=== PATIENT | male | born 1955 | race African-American/Black ===

== ENCOUNTER 2018-06-13 19:36 | Emergency (ER) | payer MEDICAID ==
[~2018-06-13] VITALS: Ht 175.3 cm; Wt 65.3 kg
[2018-06-13 21:00] LABS: Dilantin (Phenytoin), Total 7.6 ug/mL (10.0-20.0)
== END 2018-06-13 23:32 | disposition home or self-care (01) ==
LOC: ER 19:36
PROVIDERS: Emergency Medicine
DX: S01.01XA Laceration without foreign body of scalp, initial encounter (principal); R79.1 Abnormal coagulation profile; Z23 Encounter for immunization; F17.210 Nicotine dependence, cigarettes, uncomplicated; W18.30XA Fall on same level, unspecified, initial encounter
CPT/HCPCS: 12001; 36415; 70450; 72125; 80185; 90471; 90714; 96360; 96361; 99284-25; J7030

== ENCOUNTER 2020-08-13 14:37 | Inpatient (IN) | payer OTHER ==
[~2020-08-13] VITALS: Ht 170.2 cm; Wt 70.5 kg
[2020-08-13] MEDS ORDERED: MIRT15 PO (14:54)
[2020-08-13] MEDS ORDERED: PHENYTOIN SODI100 MG PO (14:55)
[2020-08-13 15:31] LABS: Source, Urine Catheter
[2020-08-13 15:37] LABS: Appearance, Urine Clear (Clear); Bilirubin, Urine Neg (Neg); Blood, Urine 5+ (Neg); Color, Urine Amber (P-Yellow); Glucose Qualitative, Urine Neg (Neg); Ketones, Urine 2+ (Neg); Leukocyte Esterase, Urine 1+ (Neg); Nitrite, Urine Neg (Neg); Protein, Urine 4+ (Neg); Urobilinogen, Urine 2+ (Normal)
[2020-08-13 15:45] LABS: Amorphous Light (0-Heavy)
[2020-08-13 15:48] LABS: Bacteria Few /hpf; Squamous Epithelial Cells Not Seen /hpf (Few)
[2020-08-13 15:50] LABS: BASOPHILS ABSOLUTE AUTO 0.04 K/mm3 (0.00-0.23); BASOPHILS PERCENT AUTO 1 % (0-2); EOSINOPHILS PERCENT AUTO 0 % (0-6); Hematocrit 39.8 % (37.0-53.0); Hemoglobin 12.8 g/dL (13.5-17.5); IMMATURE GRAN PERCENT AUTO 1 % (0-1); LYMPHOCYTES ABSOLUTE AUTO 1.08 K/mm3 (0.84-5.20); LYMPHOCYTES PERCENT AUTO 14 % (21-46); MONOCYTES ABSOLUTE AUTO 0.23 K/mm3 (0.16-1.47); MONOCYTES PERCENT AUTO 3 % (4-13); Mean Corpuscular HGB 31.1 pg (26.0-34.0); Mean Corpuscular HGB Conc 32.2 g/dL (31.5-36.5); Mean Corpuscular Volume 97 fL (80-100); Mean Platelet Volume 11.6 fL (9.1-12.4); NEUTROPHILS ABSOLUTE AUTO 6.21 K/mm3 (1.96-9.15); NEUTROPHILS PERCENT AUTO 81 % (41-73); NRBC ABSOLUTE 0.03 K/mm3 (0.00-0.02); NRBC Auto 0.4 /100 WBC (0.0-0.2); Platelet Count 59 K/mm3 (150-400); RDW Coefficient Variation 14.6 % (11.7-14.2); RDW Standard Deviation 53.1 fL (35.1-46.3); Red Blood Cell Count 4.11 M/mm3 (4.30-5.90); White Blood Cell Count 7.66 K/mm3 (4.00-11.30)
[2020-08-13 15:51] LABS: U Amphetamine Screen Not Detected; U Barbituate Screen Not Detected; U Benzodiazapine Screen Not Detected; U Buprenorphine Screen Not Detected; U Cannabinoids Screen Not Detected; U Cocaine Screen Not Detected; U Methadone Screen Not Detected; U Methamphetamine Screen Not Detected; U Opiates Screen Not Detected; U Oxycodone Screen Not Detected; U Phencyclidine Screen Not Detected; U Propoxyphene Screen Not Detected
[2020-08-13 16:09] LABS: Alanine Aminotransfer (ALT/SGP 44 U/L (12-78); Albumin, Blood 3.1 g/dL (3.4-5.0); Albumin/Globulin Ratio 0.6 (0.8-1.8); Alk Phos 89 U/L (50-136); Anion Gap 4 mmol/L (6-16); Aspartate Aminotrans (AST/SGOT 164 U/L (12-37); Bilirubin, Total 0.7 mg/dL (0.1-1.0); Blood Urea Nitrogen 39 mg/dL (8-24); Bun/Creatinine Ratio 32.5 (12.0-20.0); CO2, Blood 26 mmol/L (21-32); Calcium, Blood 9.3 mg/dL (8.5-10.1); Chloride, Blood 104 mmol/L (98-108); Globulin, Blood 5.4 g/dL (2.2-4.0); Glomerular Filtration Rate >60 (60-); Glucose, Blood 82 mg/dL (70-99); Potassium, Blood 4.9 mmol/L (3.5-5.5); Sodium, Blood 134 mmol/L (136-145); Total Protein, Blood 8.5 g/dL (6.4-8.2)
[2020-08-13 17:16] LABS: Influenza A, PCR Negative (NEGATIVE); Influenza B, PCR Negative (NEGATIVE); Resp Syncytial Virus, PCR Negative (NEGATIVE); SARS-Cov-2 (COVID-19) PCR, MMC Positive (NEGATIVE)
--- NOTE | 2020-08-14 05:06 | NUR ---
LATE ENTRY: CALL PLACED TO HOSPITALIST, DR. CASTILLO, AT 0315 RE: SINUS TACH 115-120'S. PT RESTING QUIETLY BUT REPORTING GENERALIZED PAIN 06/19. LS CLEAR/DIM W/ FAINT WHEEZE, NO EDEMA. RECEIVED ORDER FOR NS @ 75MLS/HR X 1L. NEW ORDER FOR FENTANYL PRN.
--- NOTE | 2020-08-14 05:17 | NUR ---
SHIFT SUMMARY: TACHYCARDIC W/PULSE 110-121. TEMP 100.1. MAINTAINING 02 SATS WNL ON RA. NASAL CONGESTION W/SNORTING- PRODUCING YELLOW, RED STREAKED MUCOUS. RESPS 28 UPON ARRIVAL TO UNIT, PT DOES NOT TO APPEAR TO BE IN RESP DISTRESS, RESPS SHALLOW, EVEN, ON-LABORED, 02 SATS WNL. LS CLEAR/DIM W/ FAINT WHEEZE AUDIBLE. IV FLUIDS CURRENTLY INFUSING PER ORDERS. PRN ANALGESIC ADMINISTERED, PT NOW APPEARS TO BE RESTING COMFORTABLY. SPEAKS MINIMALLY USING "YES", "NO", OR SHORT PHRASES. FORGETFUL, DOES NOT KNOW THE MEDS HE TAKES OR HIS MEDICAL HISTORY. A/O TO SELF ONLY. PT DOES NOT KNOW THE YEAR OR THE LOCATION. COOPERATIVE. FLAT AFFECT, WITHDRAWN. SPEECH IS SLOW. CONTRACTURE WITH SLOW GROSS MOVEMENT IN R HAND. R FOOT PUSH/PULL WEAK COMPARED TO L. PT REPORTS NUMBESS IN R HAND. UNABLE TO ASSESS FACIAL SYMMETRY DUE TO LACK OF PT PARTICIPATION. WILL CONT TO MONITOR.
[2020-08-14 05:28] LABS: Hematocrit 36.4 % (37.0-53.0); Hemoglobin 11.8 g/dL (13.5-17.5); Mean Corpuscular HGB 31.6 pg (26.0-34.0); Mean Corpuscular HGB Conc 32.4 g/dL (31.5-36.5); Mean Corpuscular Volume 98 fL (80-100); NRBC ABSOLUTE 0.04 K/mm3 (0.00-0.02); NRBC Auto 0.7 /100 WBC (0.0-0.2); RDW Coefficient Variation 14.9 % (11.7-14.2); RDW Standard Deviation 53.1 fL (35.1-46.3); Red Blood Cell Count 3.73 M/mm3 (4.30-5.90)
--- NOTE | 2020-08-14 05:31 | NUR ---
PT WAS WEARING LEATHER, FINGERLESS GLOVE ON R HAND UPON ADMIT. THIS RN ALONG W/ CORE JAVA SOFTWARE ENGINEER REMOVED -W/ DIFFICULTY- GLOVE TO FIND VERY THICK LAYERS OF SKIN PEELING OFF IN LARGE, THICK PIECES. PALM HAS A MACERATED APPEARANCE, ALSO W/THICK LAYERS OF TISSUE BUILT UP. PT HAS GROSS MOVEMENT ONLY AND CONTRACTURE IN R HAND. GLOVE APPEARS TO HAVE BEEN ON HAND FOR A LONG PERIOD OF TIME.
[2020-08-14 05:36] LABS: Mean Platelet Volume 13.1 fL (9.1-12.4); Platelet Count 50 K/mm3 (150-400)
[2020-08-14 05:49] LABS: BAND PERCENT MAN 3 % (0-8); BASOPHILS PERCENT MAN 0 % (0-2); Bun/Creatinine Ratio 27.3 (12.0-20.0); Creatinine, Blood 1.5 mg/dL (0.60-1.20); EOSINOPHILS PERCENT MAN 0 % (0-6); LYMPHOCYTES ABSOLUTE MAN 1.34 K/mm3 (0.84-5.20); LYMPHOCYTES PERCENT MAN 22 % (21-46); METAMYELOCYTE ABSOLUTE MAN 0.06 K/mm3 (0.00-0.00); METAMYELOCYTE PERCENT MAN 1 % (0-0); MONOCYTES ABSOLUTE MAN 0.24 K/mm3 (0.16-1.47); MONOCYTES PERCENT MAN 4 % (4-13); MYELOCYTE ABSOLUTE MAN 0.06 K/mm3 (0.00-0.00); MYELOCYTE PERCENT MAN 1 % (0-0); NEUTROPHILS ABSOLUTE MAN 4.39 K/mm3 (1.96-9.15); Potassium, Blood 4.6 mmol/L (3.5-5.5); SEG NEUTROPHILS PERCENT MAN 69 % (41-73); TOTAL CELLS COUNTED 100
--- NOTE | 2020-08-14 10:42 | NUR ---
JULIANO LOREDO: PT HISTORY/MEDS THIS RN PHONED [facility] TO OBTAIN PT INFORMATION SUCH HISTORY AND MEDICATIONS AT 1040 TODAY, 08/14/20. THIS RN SPOKE WITH SHAHRZAD WHO STATED THEY COULD NOT GET INFORMATION TO US THIS WEEKEND BECAUSE THE PT'S LABORATORY PHLEBOTOMIST IS NOT IN THE OFFICE UNTIL 08/16/20.
--- NOTE | 2020-08-14 17:19 | NUR ---
PT STATUS/PHYSICIAN NOTIFICATION THIS RN NOTIFIED DR. PÉREZ OF PT CONTINUED FEVER AND TACHYCARDIA WITH ELEVATED RESPIRATIONS AND DESATURATION. THIS RN PLACED PT ON 1 L/MIN VIA NC. THIS RN GAVE PT TYLENOL PRIOR TO PHYSICIAN NOTIFICATION. THIS RN RECIEVED ORDERS TO START PT ON IV DECADRON AND REMDESIVIR PER EMAR. THIS RN WILL CONTINUE TO MONITOR PT STATUS.
[2020-08-14 17:38] LABS: PO2 Arterial 67.5 mmHg (80-100); pH Blood Arterial 7.43 (7.35-7.45)
--- NOTE | 2020-08-14 18:45 | NUR ---
SHIFT SUMMARY PT IS AO TO SELF. PT RESPIRATIONS SHALLOW AND TACHYPNIC THROUGHOUT SHIFT. PT IS FEBRILE THIS PIERO, CURRENTLY AT 100.2 VIA ORAL THERMOMETER. PT DENIES PAIN, N/V. PT IS HAVING BLOODY NASAL OUTPUT WHEN NOSE IS BLOWN. PT HAS NONPRODUCTIVE, BARKY COUGH THIS SHIFT. PT HR IS RUNNING TACHYCARDIA IN THE 120S. SEE NOTE. POWERGLIDE PLACED IN GLORIA THIS SHIFT AND NS WITH REMDESIVIR CURRENTLY RUNNING. PT ANSWERS TO NAME AND MORE VERBAL THIS EVENING. PT WORKED WITH PT AND STATED HE IS STILL ON BEDREST. ST EVALUATED PT AND ORDERED A [facility] SOFT DIET DUE TO PT MISSING LOWER DENTURES. THIS RN CALLED [facility] REYES FOR PT INFORMATION BUT THEY STATED THEY CANNOT GET BACK TO US ON HIS HISTORY UNTIL SUNDAY-SEE NOTE. PT HAD GOOD APPETITE THIS SHIFT. PT IS CURRENTLY IN BED, CALL LIGHT IN REACH, BED IN LOW POSITION.
--- NOTE | 2020-08-14 22:55 | NUR ---
CALL TO HOSPITALIST. PT CONTINUES W/ LOW GRADE FEVER AND TACHYCARDIC AT 98-108. DR. LORRAINE DYE CONTINUING NS @ 75MLS/HR.
--- NOTE | 2020-08-15 04:45 | NUR ---
SHIFT SUMMARY: A/OX1. ANSWERING "YES", "NO", COUPLE WORD STATEMENTS. GENERALLY WITHDRAWN AND KEEPING EYES CLOSED. DENIES PAIN. 02 SATS 96-98% ON 1L VIA HUMIDIFIED NC. PT WAS NOTED TO HAVE DRIED BLOOD BESIDE NOSE. SOUNDS NASALLY CONGESTED AND FREQUENTLY SNORTS WHILE AWAKE. MODERATE AMT OF YELLOW/RED MUCOUS FOUND ON PT'S GOWN. INFREQUENT CONGESTED SOUNDING COUGH. PT AFEB THIS MORNING. LS DIM. RESPS SHALLOW, NON-LABORED. IV FLUIDS INFUSING PER ORDERS. NO ACUTE CHANGES OVERNIGHT.
[2020-08-15 05:52] LABS: Hematocrit 34.2 % (37.0-53.0); Hemoglobin 11.1 g/dL (13.5-17.5); Mean Corpuscular HGB 31.7 pg (26.0-34.0); Mean Corpuscular HGB Conc 32.5 g/dL (31.5-36.5); Mean Corpuscular Volume 98 fL (80-100); Mean Platelet Volume 12.6 fL (9.1-12.4); NRBC ABSOLUTE 0.03 K/mm3 (0.00-0.02); NRBC Auto 0.3 /100 WBC (0.0-0.2); Platelet Count 54 K/mm3 (150-400); RDW Coefficient Variation 14.6 % (11.7-14.2); RDW Standard Deviation 52.8 fL (35.1-46.3); White Blood Cell Count 9.05 K/mm3 (4.00-11.30)
[2020-08-15 06:16] LABS: Albumin, Blood 2.4 g/dL (3.4-5.0); Anion Gap 9 mmol/L (6-16); Blood Urea Nitrogen 41 mg/dL (8-24); Bun/Creatinine Ratio 28.7 (12.0-20.0); CO2, Blood 21 mmol/L (21-32); Calcium, Blood 8.4 mg/dL (8.5-10.1); Chloride, Blood 109 mmol/L (98-108); Creatinine, Blood 1.43 mg/dL (0.60-1.20); Glomerular Filtration Rate 52 (60-); Glucose, Blood 124 mg/dL (70-99); Phosphorus, Blood 4.6 mg/dL (2.5-4.9); Potassium, Blood 4.7 mmol/L (3.5-5.5); Sodium, Blood 139 mmol/L (136-145)
--- NOTE | 2020-08-15 15:17 | NUR ---
PATIENT IS INDEPENDENT IN THE ROOM. TITRATED TO 1L O2 VIA NC, WITH SATURATIONS ABOVE 90%. CONTINUOUS PULSE OX IS IN PLACE. TELEMETRY HAS BEEN DC'D. NO COMPLAINTS AT THIS TIME. WILL CONTINUE TO MONITOR.
--- NOTE | 2020-08-15 16:46 | NUR ---
PATIENT IS ALERT AND ORIENTED TO SELF AND FOLLOWING DIRECTIONS. HE HAS SLEPT IN BED MOST OF THE DAY, WAKING UP FOR MEALS AND BEDBATH. NO COMPLAINTS OF SOB OR PAIN. PATIENT HAS GROSS MOVEMENT OF HIS RIGHT EXTREMITIES. PATIENT CAN HELP ROLL HIMSELF IN BED. RYAN ROBERTSON TODAY. ATTENDS IN PLACE. NO BLOODY SPUTUM NOTED TODAY. WILL CONTINUE TO MONITOR.
--- NOTE | 2020-08-15 17:57 | NUR ---
PATIENT IS FEEDING HIMSELF DINNER
[2020-08-16 05:41] LABS: Hematocrit 33.2 % (37.0-53.0); Hemoglobin 10.6 g/dL (13.5-17.5); Mean Corpuscular HGB 31.5 pg (26.0-34.0); Mean Corpuscular HGB Conc 31.9 g/dL (31.5-36.5); Mean Corpuscular Volume 99 fL (80-100); Mean Platelet Volume 12.5 fL (9.1-12.4); NRBC ABSOLUTE 0.06 K/mm3 (0.00-0.02); NRBC Auto 0.4 /100 WBC (0.0-0.2); Platelet Count 63 K/mm3 (150-400); RDW Coefficient Variation 14.6 % (11.7-14.2); RDW Standard Deviation 53.6 fL (35.1-46.3); Red Blood Cell Count 3.37 M/mm3 (4.30-5.90); White Blood Cell Count 15.61 K/mm3 (4.00-11.30)
[2020-08-16 05:57] LABS: Albumin, Blood 2.2 g/dL (3.4-5.0); Anion Gap 8 mmol/L (6-16); Blood Urea Nitrogen 46 mg/dL (8-24); Bun/Creatinine Ratio 32.2 (12.0-20.0); CHOL/HDL RATIO 2.5; CO2, Blood 21 mmol/L (21-32); Calcium, Blood 7.4 mg/dL (8.5-10.1); Chloride, Blood 112 mmol/L (98-108); Cholesterol 89 mg/dL (50-200); Creatinine, Blood 1.43 mg/dL (0.60-1.20); Glomerular Filtration Rate 52 (60-); Glucose, Blood 128 mg/dL (70-99); HDL Cholesterol 35 mg/dL (>39); LDL/HDL RATIO 1.1; Low Density Lipoprotein Chol 39 mg/dL (0-110); Potassium, Blood 4.8 mmol/L (3.5-5.5); Sodium, Blood 141 mmol/L (136-145); Triglycerides 73 mg/dL (30-160); Very Low Density Lipoprot Chol 14 mg/dL (6-32)
--- NOTE | 2020-08-16 06:24 | NUR ---
SHIFT SUMMARY: VSS. TEMP 99.0 AT THE HIGHEST TONIGHT. 02 88% THIS ON 1L VIA NC, INCREASED TO 2L. NOW SATTING AT 93%. RESPS SHALLOW, NON-LABORED, PT DENIES SOB. LUNGS DIM. OCC CONGESTED SOUNDING COUGH. APPEARS TO BE NON-PRODUCTIVE AT THIS TIME. DENIES PAIN. AAOX1. MORE RESPONSIVE AND ALERT W/ EYES OPEN AND MAKING EYE CONTACT MORE TONIGHT. STILL USING FEW WORDS IN REPLY TO STAFF. SPEECH CLEAR. SWALLOWING THIN LIQUIDS WITHOUT COUGHING. R PROGRAM THERAPIST/PUSHES/PULLS CONTINUE W/ WEAKNESS AND GROSS MOVEMENT ONLY. PT DENIES N/T. HEAVY INCONTINENT VOID TONIGHT- PT SEEMINGLY UNAWARE HE WAS WET. PVR 0 MLS. NO ACUTE CONCERNS AT THIS TIME.
--- NOTE | 2020-08-16 18:38 | NUR ---
PT SEEN BY PT THIS SHIFT, ABLE TO SIT ON EOB AND STAND AT BEDSIDE WITH WALKER AND ASSISTANCE. SNF RECOMMENDED BUT OF THIS AFTERNOON PT IS SAYING HE DOES NOT WANT TO GO TO REHAB. HE DECLINED TO WORK WITH OT THIS AFTERNOON. HE HAS BEEN SLEEPING A LOT TODAY. NO ACUTE CHANGES WILL CONTINUE TO MONITOR AND REPORT TO ONCOMING RN
--- NOTE | 2020-08-17 04:54 | NUR ---
ENGINEERING GEOLOGIST SUMMARY PT AAOX2 FOR THE MOST PART. CAN ANSWER YES/NO QUESTIONS AND SOME SHORT SENTENCES BUT PT STILL CONFUSED/FORGETFUL AT TIMES. PT HAD LARGE INCONTINENT BM AT START OF SHIFT. PT ALSO PULLED GLORIA POWERGLIDE AT START OF SHIFT. PG CATHETER REMOVED IN ONE PIECE AND WNL, REPLACED WITH 20G PERIPHERAL IV IN LFA. PT REMAIN ON 2L O2 VIA NC, NO CHANGES ON TELE. BED ALARM ON FOR SAFETY. VSS, WILL CONTINUE TO MONITOR.
--- NOTE | 2020-08-18 05:06 | NUR ---
WEB GRAPHIC DESIGNER SUMMARY NO ACUTE CHANGES THIS SHIFT. PT AAOX2, STILL WITHDRAWN AND SPEAKING IN SHORT CONCISE SENTENCES OR SIMPLE YES/NO ANSWERS. DENIES PAIN. PT O2 SATS AT 98% WITH AM VITALS SO PT TAKEN OFF OF SUPPLEMENTAL O2 AT THIS TIME. CONTINUES TO HAVE SOME BLOODY STREAKING WHEN BLOWING HIS NOSE. VSS, WILL CONTINUE TO MONITOR.
--- NOTE | 2020-08-18 18:37 | NUR ---
SUMMARY- PT ALERT TO SELF, FOLLOWS COMMANDS PHYSICALLY ABLE. PT LUNGS CLEAR, DIM. OCC MOIST COUGH WITH PRODUCTION. 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 PHYSICAL THERAPY WORKED WITH PT TODAY IN THE BED. THE PLAN IS FOR [facility] OR [facility] FOR REHAB BEFORE RETURNING HOME TO [facility]. PT NOT EATING A LARGE AMOUNT. NEEDS SET UP AND ASSIST SOMETIMES. VOIDS USING URINAL MOST OF THE TIME, SOMETIMES MISSES AND SOILS BED. PT SEEMS SEVERELY WITHDRWN AND LIKELY DEPRESSED.
--- NOTE | 2020-08-19 04:07 | NUR ---
SHIFT SUMMARY ASSUMED CARE OF PT AT 1900. PT IS A/OX1, FLAT AND WITHDRAWL AFFECT. PT WILL ANSWER WITH YES OF NO. HEART SOUNDS REGULAR, TELE SHOWS SINUS @ 86. LUNG SOUNDS HAVE CRACKLES AT THE BASES. PT WAS ON RA UNTIL ABOUT 0400 AFTER BEING CHANGED, PT COUGHED AND DESATURTATED INTO THE 802. 2.5 L ADMINISTERED AND PT RESIRATIONS DECREASE, SATURATIONS AT 92%. PT WAS INCONTIENT T/O THE NIGHT. PT HAS LUMPS ON HIS SHINS. PT R SIDE AND JAYME AREA ARE VERY SENSITIVE TO TOUCH. R HAND IS CONTRACTED AND R LEG IS WEAK. CALL LIGHT IN REACH, BED IN LOWEST POSTION, WILL CONTINUE TO MONITOR.
--- NOTE | 2020-08-19 12:12 | NUR ---
Patient is lying in bed and alert. Patient is quiet and somewhat difficult to engage in conversation. Patient tells me that he is frustrated and has no one as far as a support system. While we were visiting he wet the bed so I had to cut my time with patient short. I checked back in with patient after I visit an another patient and Mr. Jensen said that he does not really need anything today but he would not mind another visit tomorrow. I will will continue to remain available to patient and hopefully be able to discuss his coping skills and resources.
--- NOTE | 2020-08-19 18:11 | NUR ---
SUMM- PT ALERT TO SELF, PLACE AND CIRCUMSTANCE. HAS EXPRESSIVE APHASIA AND R CONTRACTURED ARM AT BASELINE. PT HAS PERIODS OF TACHYPNIA SEEMING TO COORILATE WITH STAFF CONTACT, MAYBE NERVOUS. GEN RESP RATE SHALLOW AND FAST 18-24. SATS 95% ON 3L OXYGEN. NOTED CRACKLES ANT LOWER HALF ANT CHEST FIELD. NOTIFIED DR LUA THIS AM AND LASIX ORDERED. PT DIURESED 1600 OVER 12 HOURS. PT ALSO HAVING FREQ MOIST COUGH THAT SOUNDS RATTLEY AND PT NOT ABLE TO GET ALOT OF PRODUCTION DESPITE STRONG COUGH. DR LUA AGREED TO START FLUTTER VALVE AND GUIAFFENISIN. PLAN FOR PT TO GO TO [facility] 08/20.
--- NOTE | 2020-08-20 04:18 | NUR ---
SHIFT SUMMARY ASSUMED CARE OF PT AT 1900. PT IS WITHDRAWN AND LETHARGIC. PT WILL ANSWER YES AND NO QUESTIONS AND SOMETIMES ANSWER WITH A WORD. PT ASKED TO GO TO THE BATHROOM THIS PM. PT WAS ABLE TO MADE IT WITH 2P SBA. PT WOULD TAKE A BIG STEP WITH THE R LEG AND THEN A SMALL STEP WITH THE LEFT. PT DID NOT LISTEN TO COMMANDS WELL AND TOOK A LOT OF ENCOURAGING TO GET BACK INTO BED. PT HR WENT INTO THE 150'S AND PT COUGHED FOR ABOUT 30MIN AFTER TRANSFER, MEDICATED PER EMAR. PT O2 WAS TURNED UP TO 4L. PT HAS REMAINED ON 3-5 LITERS DURING THE NIGHT. PT DESATURATES WHEN HE COUGHS. HEART SOUNDS TACHY, TELE SHOWS SINUS TACH @ 107 BUT DECREASED AFTER REST INTO THE 80'S. PT HAD LARGE BM THIS EVENING. PT WAS INCONTINENT OF URINE DURING THE NIGHT. PT HAS SCALY SKIN ON LEGS. PT WORE SCD ALL NIGHT. CALL LIGHT IN REACH, BED IN LOWEST POSITION, WILL CONTINUE TO MONITOR.
[2020-08-20 05:14] LABS: Hematocrit 33.4 % (37.0-53.0); Hemoglobin 10.9 g/dL (13.5-17.5); Mean Corpuscular HGB 31.1 pg (26.0-34.0); Mean Corpuscular HGB Conc 32.6 g/dL (31.5-36.5); Mean Corpuscular Volume 95 fL (80-100); Mean Platelet Volume 12.2 fL (9.1-12.4); NRBC ABSOLUTE 0.21 K/mm3 (0.00-0.02); Platelet Count 91 K/mm3 (150-400); RDW Coefficient Variation 14.5 % (11.7-14.2); RDW Standard Deviation 50.3 fL (35.1-46.3)
[2020-08-20 05:24] LABS: Bun/Creatinine Ratio 27.3 (12.0-20.0); Calcium, Blood 8.3 mg/dL (8.5-10.1); Creatinine, Blood 1.28 mg/dL (0.60-1.20); Potassium, Blood 3.9 mmol/L (3.5-5.5)
--- NOTE | 2020-08-20 18:10 | NUR ---
SHIFT SUMMARY PT AXO TO SELF AND FOLLOWING SOME DIRECTIONS. PT COOPERATIVE WITH CARE. SEE PHYSICAL THERAPY AND OT NOTES. AT 1531 PT TEMP WAS 101.3, MEDICATED PER EMAR, 99.9 AT THIS TIME. PT NOT TOLERATING [facility] SOFT DIET, PUREE DIET ORDERED. PT INCONTINENT AND CHANGED PRN. PT DENIES PAIN, SOB AND NC. PT COUGHING AT TIMES. BED IN LOW POSITION, CALL LIGHT WITHIN REACH. BED ALARM ON.
--- NOTE | 2020-08-21 04:48 | NUR ---
CRYSTAL EVALUATOR SUMMARY PT A&O TO SELF, PLEASANT AND COOPERATIVE TO CARE. NO C/O PAIN THIS SHIFT. DENIES CP OR N&V. PT ON 4LPM O2 VIA NC, SOB WITH EXERTION, CONT TO COUGH OCCASSIONALLY, PRODUCTIVE. ON CONT BIOX 90-94%. PT 2 MAX ASSIST, INCONTINENT. DENIES DYSURIA, ATTENDS IN PLACE. PT CALM AND RESTED IN BED T/O SHIFT, BED ALARM ON, BED AT LOWEST POSITION, CALL LIGHT WITHIN REACH.
[2020-08-21 05:58] LABS: BASOPHILS ABSOLUTE AUTO 0.14 K/mm3 (0.00-0.23); BASOPHILS PERCENT AUTO 1 % (0-2); EOSINOPHILS PERCENT AUTO 0 % (0-6); Hematocrit 33.6 % (37.0-53.0); Hemoglobin 10.9 g/dL (13.5-17.5); IMMATURE GRAN ABSOLUTE AUTO 3.21 K/mm3 (0.00-0.10); IMMATURE GRAN PERCENT AUTO 14 % (0-1); LYMPHOCYTES ABSOLUTE AUTO 2.69 K/mm3 (0.84-5.20); LYMPHOCYTES PERCENT AUTO 12 % (21-46); MONOCYTES ABSOLUTE AUTO 0.57 K/mm3 (0.16-1.47); MONOCYTES PERCENT AUTO 3 % (4-13); Mean Corpuscular HGB Conc 32.4 g/dL (31.5-36.5); Mean Corpuscular Volume 99 fL (80-100); Mean Platelet Volume 12.4 fL (9.1-12.4); NEUTROPHILS ABSOLUTE AUTO 15.67 K/mm3 (1.96-9.15); NEUTROPHILS PERCENT AUTO 70 % (41-73); NRBC ABSOLUTE 0.12 K/mm3 (0.00-0.02); NRBC Auto 0.5 /100 WBC (0.0-0.2); Platelet Count 87 K/mm3 (150-400); RDW Coefficient Variation 14.6 % (11.7-14.2); RDW Standard Deviation 52.2 fL (35.1-46.3); Red Blood Cell Count 3.41 M/mm3 (4.30-5.90); White Blood Cell Count 22.38 K/mm3 (4.00-11.30)
[2020-08-21 06:17] LABS: BAND PERCENT MAN 7 % (0-8); BASOPHILS PERCENT MAN 0 % (0-2); EOSINOPHILS PERCENT MAN 0 % (0-6); LYMPHOCYTES ABSOLUTE MAN 3.13 K/mm3 (0.84-5.20); LYMPHOCYTES PERCENT MAN 14 % (21-46); METAMYELOCYTE ABSOLUTE MAN 1.11 K/mm3 (0.00-0.00); METAMYELOCYTE PERCENT MAN 5 % (0-0); MONOCYTES ABSOLUTE MAN 0.67 K/mm3 (0.16-1.47); MONOCYTES PERCENT MAN 3 % (4-13); MYELOCYTE ABSOLUTE MAN 0.44 K/mm3 (0.00-0.00); MYELOCYTE PERCENT MAN 2 % (0-0); SEG NEUTROPHILS PERCENT MAN 69 % (41-73); TOTAL CELLS COUNTED 100
[2020-08-21 06:19] LABS: Anion Gap 7 mmol/L (6-16); Blood Urea Nitrogen 32 mg/dL (8-24); Bun/Creatinine Ratio 25.4 (12.0-20.0); CO2, Blood 23 mmol/L (21-32); Calcium, Blood 8.7 mg/dL (8.5-10.1); Chloride, Blood 110 mmol/L (98-108); Creatinine, Blood 1.26 mg/dL (0.60-1.20); Glomerular Filtration Rate >60 (60-); Glucose, Blood 90 mg/dL (70-99); Potassium, Blood 4.5 mmol/L (3.5-5.5); Sodium, Blood 140 mmol/L (136-145)
--- NOTE | 2020-08-21 18:19 | NUR ---
PT IS AOX1 WITH VERY MINIMAL VERBAL RESPONSES. PT SLEPT MOST OF THE DAY. PT DID NOT EAT BREAKFAST, BUT THEN ATE MOST OF HIS LUNCH AND THEN DIDN'T EAT MUCH DINNER. PT IS INCONTENT AND WILL WET THEH WHOLE BED. WHEN CHANGED AND TURNED PT HIS O2 STATED TO GET DOWN INTO THE 80s. RT WAS NOTIFIED THAT PT WAS NEEDED TO HAVE 7L TO KEEP UP HIS O2 LEVEL TO 89-90. RT CHANED PT TO HIGH FLOW CANULA AND THIS SEEMS TO BE WORKING WELL AT 4L. PT IS BEING REPOSITIONED EVERY COUPLE HOURS. PT WOULD ONLY TOLERATE A PARCEL BED BATH AND REFUSED HAIR GETTING CLEANED. BED ALARM IN PLACE WILL CONTINUE TO MONITOR.
--- NOTE | 2020-08-22 05:40 | NUR ---
SHIFT SUMMARY NO ACUTE CHANGES THIS SHIFT. PT HAD BED BATH AND COMPLETE LINEN CHANGE THIS SHIFT. PT WILL TAKE O2 OUT OF NOSE OFTEN, O2 SAT DIPS DOWN TO 86-89% WHEN THIS HAPPENS. ONCE O2 IS BACK IN PLACE O2 SAT WILL RETURN TO 93-96%. CONT BIOX IN PLACE. PT IS INCONTINENT, ORIENTED TO SELF ONLY. PT CAN BE RESISTIVE TO CARE, BUT ONCE THIS RN EXPLAINED WHY WE WERE DOING WHAT WE WERE DOING THE PT LET US. PT IS LAYING IN BED WITH EYES CLOSED, EVEN AND UNLABORED RESPIRATIONS. BED IN LOWERED POSITION WITH ALARM IN PLACE. CALL LIGHT AND PERSONAL ITEMS WITH IN REACH. NO APPARENT NEEDS OR DISTRESS AT THIS TIME, WILL CONTINUE TO MONITOR UNTIL REPORT GIVEN TO DAY RN.
[2020-08-22 06:00] LABS: BASOPHILS ABSOLUTE AUTO 0.09 K/mm3 (0.00-0.23); BASOPHILS PERCENT AUTO 0 % (0-2); EOSINOPHILS ABSOLUTE AUTO 0.22 K/mm3 (0.00-0.68); EOSINOPHILS PERCENT AUTO 1 % (0-6); Hematocrit 33.1 % (37.0-53.0); Hemoglobin 10.5 g/dL (13.5-17.5); IMMATURE GRAN ABSOLUTE AUTO 2.64 K/mm3 (0.00-0.10); IMMATURE GRAN PERCENT AUTO 13 % (0-1); LYMPHOCYTES ABSOLUTE AUTO 2.52 K/mm3 (0.84-5.20); LYMPHOCYTES PERCENT AUTO 12 % (21-46); MONOCYTES ABSOLUTE AUTO 0.69 K/mm3 (0.16-1.47); MONOCYTES PERCENT AUTO 3 % (4-13); Mean Corpuscular HGB 31.8 pg (26.0-34.0); Mean Corpuscular HGB Conc 31.7 g/dL (31.5-36.5); Mean Corpuscular Volume 100 fL (80-100); NEUTROPHILS ABSOLUTE AUTO 14.89 K/mm3 (1.96-9.15); NEUTROPHILS PERCENT AUTO 71 % (41-73); NRBC ABSOLUTE 0.04 K/mm3 (0.00-0.02); NRBC Auto 0.2 /100 WBC (0.0-0.2); Platelet Count 85 K/mm3 (150-400); RDW Coefficient Variation 14.6 % (11.7-14.2); RDW Standard Deviation 52.4 fL (35.1-46.3); White Blood Cell Count 21.05 K/mm3 (4.00-11.30)
[2020-08-22 06:04] LABS: Mean Platelet Volume 12.8 fL (9.1-12.4)
[2020-08-22 06:18] LABS: BAND PERCENT MAN 8 % (0-8); BASOPHILS PERCENT MAN 0 % (0-2); EOSINOPHILS ABSOLUTE MAN 0.21 K/mm3 (0.00-0.68); EOSINOPHILS PERCENT MAN 1 % (0-6); LYMPHOCYTES PERCENT MAN 10 % (21-46); METAMYELOCYTE ABSOLUTE MAN 0.84 K/mm3 (0.00-0.00); METAMYELOCYTE PERCENT MAN 4 % (0-0); MONOCYTES ABSOLUTE MAN 0.63 K/mm3 (0.16-1.47); MONOCYTES PERCENT MAN 3 % (4-13); MYELOCYTE ABSOLUTE MAN 0.42 K/mm3 (0.00-0.00); MYELOCYTE PERCENT MAN 2 % (0-0); NEUTROPHILS ABSOLUTE MAN 16.62 K/mm3 (1.96-9.15); PROMYELOCYTE ABSOLUTE MAN 0.21 K/mm3 (0.00-0.00); PROMYELOCYTE PERCENT MAN 1 % (0-0); SEG NEUTROPHILS PERCENT MAN 71 % (41-73); TOTAL CELLS COUNTED 100
--- NOTE | 2020-08-22 18:51 | NUR ---
PT AOX1 AND COOPERATIVE FOR MOST CARE. PT IS HYPER SENSATIVE TO R SIDE AND WILL. PT NEEDS REPOSTIONED EVERY TWO HOURS AND FEED. PT IS VERY MINIMAL ON TALKING AND LIKES YES OR NO ANSWERS.PT DID HAVE TROUBLE LATE SHIFT WITH HIS NOSE BLEEDING. THIS HAS KEEP GOING. NOTIFIED DR LUA WHO ORDERED ICE TO BE HELD OVER NOSE IF NOT EFFECTIVE NOTIFY NIGHT DOCOTOR AND NOSE ROCKETS MAY BE NEEDED. WILL NOTIFY TYPESETTER APPRENTICE NURSE OF THIS. PT DID NOT WANT ICE. PT STILL HAVING SOME BLEEDING.
--- NOTE | 2020-08-22 23:25 | NUR ---
08/22/20 2315 Patient is having continued nose bleed. Pt is confused and non directable. Pt is taking off oxygen and blowing nose. Pt is still passing clots. ( approximately 1 TBSP worth of clots x3.) Dr. Alejandre notified, she asked me to ask Dr. Calvert what to do. Afrin ordered and labs PT/INR ordered. Primary nurse Natali LOGAN notified of orders.
[2020-08-23 00:02] LABS: International Normalized Ratio 1.07; Prothrombin Time Results 11.4 Sec (9.7-11.5)
--- NOTE | 2020-08-23 04:28 | NUR ---
08/23/20 0200 PT SLEEPING AND NOSEBLEEDING HAS SUBSIDED WITH ONLY ONE DROP OF BLOOD NOTICED UNDER LEFT NARE. RN CLEANSED IT OFF. O2 SATS REMAIN IN THE MID- TO HIGH 90'S ON 5LPM VIA N/C. REPOSITIONED Q 2 HOURS BY TWO STAFF. PT DOES TRY TO HELP WITH TURNING WHEN ASKED. ONLY ANSWERS QUESTIONS WITH 1-2 WORDS RESPONSES.
[2020-08-23 05:06] LABS: BASOPHILS ABSOLUTE AUTO 0.04 K/mm3 (0.00-0.23); BASOPHILS PERCENT AUTO 0 % (0-2); EOSINOPHILS ABSOLUTE AUTO 0.22 K/mm3 (0.00-0.68); EOSINOPHILS PERCENT AUTO 1 % (0-6); Hematocrit 30.4 % (37.0-53.0); Hemoglobin 9.9 g/dL (13.5-17.5); IMMATURE GRAN ABSOLUTE AUTO 1.32 K/mm3 (0.00-0.10); IMMATURE GRAN PERCENT AUTO 8 % (0-1); LYMPHOCYTES ABSOLUTE AUTO 2.02 K/mm3 (0.84-5.20); LYMPHOCYTES PERCENT AUTO 13 % (21-46); MONOCYTES ABSOLUTE AUTO 0.55 K/mm3 (0.16-1.47); MONOCYTES PERCENT AUTO 4 % (4-13); Mean Corpuscular HGB 32.8 pg (26.0-34.0); Mean Corpuscular HGB Conc 32.6 g/dL (31.5-36.5); Mean Corpuscular Volume 101 fL (80-100); Mean Platelet Volume 12.7 fL (9.1-12.4); NEUTROPHILS ABSOLUTE AUTO 11.49 K/mm3 (1.96-9.15); NEUTROPHILS PERCENT AUTO 74 % (41-73); NRBC ABSOLUTE 0.02 K/mm3 (0.00-0.02); NRBC Auto 0.1 /100 WBC (0.0-0.2); Platelet Count 86 K/mm3 (150-400); RDW Coefficient Variation 14.4 % (11.7-14.2); RDW Standard Deviation 51.9 fL (35.1-46.3); Red Blood Cell Count 3.02 M/mm3 (4.30-5.90); White Blood Cell Count 15.64 K/mm3 (4.00-11.30)
[2020-08-23 05:19] LABS: Anion Gap 5 mmol/L (6-16); Blood Urea Nitrogen 41 mg/dL (8-24); Bun/Creatinine Ratio 32.3 (12.0-20.0); CO2, Blood 24 mmol/L (21-32); Calcium, Blood 8.6 mg/dL (8.5-10.1); Chloride, Blood 107 mmol/L (98-108); Creatinine, Blood 1.27 mg/dL (0.60-1.20); Glomerular Filtration Rate >60 (60-); Glucose, Blood 99 mg/dL (70-99); Potassium, Blood 4.8 mmol/L (3.5-5.5); Sodium, Blood 136 mmol/L (136-145)
[2020-08-23 05:36] LABS: BAND PERCENT MAN 6 % (0-8); BASOPHILS PERCENT MAN 0 % (0-2); EOSINOPHILS ABSOLUTE MAN 0.31 K/mm3 (0.00-0.68); EOSINOPHILS PERCENT MAN 2 % (0-6); LYMPHOCYTES ABSOLUTE MAN 1.25 K/mm3 (0.84-5.20); LYMPHOCYTES PERCENT MAN 8 % (21-46); METAMYELOCYTE ABSOLUTE MAN 0.78 K/mm3 (0.00-0.00); METAMYELOCYTE PERCENT MAN 5 % (0-0); MONOCYTES ABSOLUTE MAN 0.15 K/mm3 (0.16-1.47); MONOCYTES PERCENT MAN 1 % (4-13); MYELOCYTE ABSOLUTE MAN 0.15 K/mm3 (0.00-0.00); MYELOCYTE PERCENT MAN 1 % (0-0); NEUTROPHILS ABSOLUTE MAN 12.98 K/mm3 (1.96-9.15); SEG NEUTROPHILS PERCENT MAN 77 % (41-73); TOTAL CELLS COUNTED 100
--- NOTE | 2020-08-23 17:22 | NUR ---
SHIFT SUMMARY- PT IS ALERT, HE RESPONDS WITH ONE OR TWO WORD ANSWERS. PROVIDED A BED BATH TODAY. HIS APPETITE IS POOR. HE WAS TITRATED DOWN TO 4L AND MAINTAINED O2 SATS. HE SLEPT INTERMITENTLY THROUGHOUT THIS SHIFT. HIS BED IS IN THE LOW POSITION AND HIS CALL LIGHT IS WITHIN REACH.
--- NOTE | 2020-08-23 22:50 | NUR ---
This specification writer received an order from Dr. Calvert on 08/22/20 at 8190 for oxymetazoline 2 sprays q12 hours for nose bleed updated at this time.
--- NOTE | 2020-08-23 23:12 | NUR ---
Lab was notified on 08/23/20 [address] Terrence Calvert on 08/22/20 at 2330 for PT/INR for updating.
--- NOTE | 2020-08-24 00:09 | NUR ---
08/23/20 2350 REPOSITIONED TO LEFT SIDE AND SUPPORTED BY PILLOWS. DENIES ANY DISCOMFORT WITH "NO!" ORAL FLUIDS GIVEN BUT ONLY TOOK COUPLE OF SIPS OF WATER. WATCHING TV.
--- NOTE | 2020-08-24 03:34 | NUR ---
08/24/20 0330 VITALS STABLE. PT ON O2 AT 3LPM VIA N/C. ONLY WILL TAKE SMALL AMOUNTS OF ORAL FLUID EVEN WITH ENCOURAGMENT. NO NOSE BLEEDING THIS SHIFT. DENIES PAIN. SKIN TEAR NOTED TO RFA AND CLEANSED AND BANDAID APPLIED. PT DOES NOT INITIATE CONVERSATION BUT WILL OCC. ANSWER QUESTIONS WITH "YES"/"NO" RESPONSES. WATCHING TV ON AND OFF THIS SHIFT.
[2020-08-24] MEDS ORDERED: ASPI81CH PO (13:00)
[2020-08-24] MEDS ORDERED: AMOCLA875 PO (13:00)
[2020-08-24] MEDS ORDERED: ACET325 PO (13:00)
[2020-08-24] MEDS ORDERED: GUAI200 PO (13:01)
[2020-08-24] MEDS ORDERED: OXYM.05NI (13:02)
--- NOTE | 2020-08-24 15:00 | NUR ---
SUMMARY/DISCHARGE PT DISCHARGED TO [facility], THEIR COVID UNIT, PT AGREEABLE TO TRANSFER, PT UP WITH 2P ASSIST TO THE WHEELCHAIR, PT TAKEN VIA WHEELCHAIR, REPORT CALLED TO THE NURSE AVIVA AT [facility]
== END 2020-08-24 14:49 | DRG 177 ==
LOC: ER 14:37 → MEDS 23:30
PROVIDERS: Emergency Medicine; Internal Medicine; Nurse Practitioner Acute Care; Specialist; ADMIT Internal Medicine
PROC: XW033E5 Introduction of Remdesivir Anti-infective into Peripheral Vein, Percutaneous Approach, New Technology Group 5 (ICD-10-PCS; principal; 2020-08-13)
PROC: 3E0333Z Introduction of Anti-inflammatory into Peripheral Vein, Percutaneous Approach (ICD-10-PCS; 2020-08-13)
DX: U07.1 COVID-19 (principal); G92 Toxic encephalopathy; J12.89 Other viral pneumonia; J96.01 Acute respiratory failure with hypoxia; J69.0 Pneumonitis due to inhalation of food and vomit; E87.1 Hypo-osmolality and hyponatremia; I69.351 Hemiplegia and hemiparesis following cerebral infarction affecting right dominant side; N17.9 Acute kidney failure, unspecified; Z66 Do not resuscitate; F17.210 Nicotine dependence, cigarettes, uncomplicated; W19.XXXA Unspecified fall, initial encounter; G40.909 Epilepsy, unspecified, not intractable, without status epilepticus; D69.6 Thrombocytopenia, unspecified; Z91.81 History of falling; R54 Age-related physical debility
CPT/HCPCS: 0241U; 36415; 36600; 51702; 70450; 70496; 70498; 71045; 80048; 80053; 80061; 80069; 81001; 82803; 84145; 85025; 85027; 85610; 87040; 87086; 92526; 92610; 93005; 93010; 94761; 94762; 97110; 97112; 97162; 97166; 97530; 97535; 99285-25; A9270; A9270-GY; G0480; J1100; J1650; J1940; J3010; J7030; Q9967

== ENCOUNTER → 2021-04-29 | Outpatient (CLI) | payer MEDICARE, OTHER ==
[~2021-04-29] MED LIST: ACET325 PO; AMOCLA875 PO; ASPI81CH PO; CEFP200 PO; GUAI200 PO; MIRT15 PO; OXYM.05NI; PHENYTOIN SODI100 MG PO
[2021-04-30 15:57] LABS: CORONAVIRUS (COVID19) CSH-NRL Negative (Negative)
== END | disposition home or self-care (01) ==
LOC: LAB RH 10:29 → EDSTATUS 15:13
PROVIDERS: Internal Medicine
DX: U07.1 COVID-19 (principal)
CPT/HCPCS: U0003

== ENCOUNTER 2021-04-30 14:56 | Emergency (ER) | payer OTHER ==
[~2021-04-30] VITALS: Ht 182.9 cm; Wt 77.1 kg
[~2021-04-30 14:56] MED LIST changes: -CEFP200 PO
[2021-04-30 15:24] LABS: Hematocrit 25.7 % (37.0-53.0); Hemoglobin 7.7 g/dL (13.5-17.5); Mean Corpuscular HGB 32.8 pg (26.0-34.0); Mean Corpuscular Volume 109 fL (80-100); Mean Platelet Volume 12.2 fL (9.1-12.4); Platelet Count 210 K/mm3 (150-400); RDW Coefficient Variation 17.5 % (11.7-14.2); RDW Standard Deviation 66.3 fL (35.1-46.3); Red Blood Cell Count 2.35 M/mm3 (4.30-5.90)
[2021-04-30 15:27] LABS: BASOPHILS ABSOLUTE AUTO 0.01 K/mm3 (0.00-0.23); BASOPHILS PERCENT AUTO 0 % (0-2); EOSINOPHILS PERCENT AUTO 0 % (0-6); IMMATURE GRAN ABSOLUTE AUTO 0.08 K/mm3 (0.00-0.10); IMMATURE GRAN PERCENT AUTO 1 % (0-1); LYMPHOCYTES ABSOLUTE AUTO 2.17 K/mm3 (0.84-5.20); LYMPHOCYTES PERCENT AUTO 23 % (21-46); MONOCYTES ABSOLUTE AUTO 0.31 K/mm3 (0.16-1.47); MONOCYTES PERCENT AUTO 3 % (4-13); NEUTROPHILS ABSOLUTE AUTO 6.72 K/mm3 (1.96-9.15); NEUTROPHILS PERCENT AUTO 72 % (41-73); NRBC ABSOLUTE 0.05 K/mm3 (0.00-0.02); NRBC Auto 0.5 /100 WBC (0.0-0.2); White Blood Cell Count 9.29 K/mm3 (4.00-11.30)
[2021-04-30 15:40] LABS: Albumin, Blood 3.7 g/dL (3.4-5.0); Albumin/Globulin Ratio 0.6 (0.8-1.8); Bilirubin, Total 0.3 mg/dL (0.1-1.0); Bun/Creatinine Ratio 21.8 (12.0-20.0); Calcium, Blood 9.3 mg/dL (8.5-10.1); Creatinine, Blood 1.33 mg/dL (0.60-1.20); Potassium, Blood 3.9 mmol/L (3.5-5.5); Total Protein, Blood 9.7 g/dL (6.4-8.2)
[2021-04-30 16:47] LABS: BAND PERCENT MAN 1 % (0-8); BASOPHILS PERCENT MAN 0 % (0-2); EOSINOPHILS PERCENT MAN 0 % (0-6); LYMPHOCYTES ABSOLUTE MAN 3.06 K/mm3 (0.84-5.20); LYMPHOCYTES PERCENT MAN 33 % (21-46); MONOCYTES PERCENT MAN 0 % (4-13); NEUTROPHILS ABSOLUTE MAN 6.22 K/mm3 (1.96-9.15); SEG NEUTROPHILS PERCENT MAN 66 % (41-73); TOTAL CELLS COUNTED 100
[2021-04-30 17:43] LABS: Source, Urine Voided
[2021-04-30 17:46] LABS: Appearance, Urine Clear (Clear); Bilirubin, Urine Neg (Neg); Blood, Urine 3+ (Neg); Color, Urine Yellow (P-Yellow); Glucose Qualitative, Urine Neg (Neg); Ketones, Urine Neg (Neg); Leukocyte Esterase, Urine 1+ (Neg); Nitrite, Urine Neg (Neg); Protein, Urine 2+ (Neg); Urobilinogen, Urine NORM (Normal)
[2021-04-30 17:59] LABS: Bacteria Mod /hpf; Squamous Epithelial Cells Few /hpf (Few)
[2021-04-30] MEDS ORDERED: CEFP200 PO (18:11)
== END 2021-04-30 20:15 | disposition home or self-care (01) ==
LOC: ER 14:56
PROVIDERS: Emergency Medicine
DX: N39.0 Urinary tract infection, site not specified (principal); D64.9 Anemia, unspecified; Z79.82 Long term (current) use of aspirin; Z79.899 Other long term (current) drug therapy; Z86.73 Personal history of transient ischemic attack (TIA), and cerebral infarction without residual deficits
CPT/HCPCS: 36415; 51701; 71045; 80053; 81001; 85025; 87086; 99284-25; A9270; J0696; J7030

== ENCOUNTER 2021-05-22 12:11 | Emergency (ER) | payer OTHER ==
[~2021-05-22] VITALS: Ht 172.7 cm; Wt 74.8 kg
[~2021-05-22 12:11] MED LIST changes: -ACET500 PO; -ANORO ELLIPTA1 EACH INH; +ASPI81CH PO; -Aspir 8181 MG PO; -BISA5EC PO; -Hair, Skin & N1 EACH PO; -LORA.5 PO; -MIRALAX17 GM PO; -MORP20L PO; -PANTOPRAZOLE SO40 M2 PO; +PHENYTOIN SODI100 MG PO; -PHENYTOIN125 MG/5 M PO; -SENN187 PO; -TAMSULOSIN HCL0.4 M1 PO; -VANCOCIN HCL125 MG PO; -Vitamin D1000 UNI1 PO; -ZOLOFT50 MG PO
[2021-05-22 13:18] LABS: Alanine Aminotransfer (ALT/SGP 107 U/L (12-78); Albumin, Blood 3.2 g/dL (3.4-5.0); Albumin/Globulin Ratio 0.6 (0.8-1.8); Alk Phos 155 U/L (50-136); Anion Gap 6 mmol/L (6-16); Aspartate Aminotrans (AST/SGOT 213 U/L (12-37); Bilirubin, Total 0.2 mg/dL (0.1-1.0); Blood Urea Nitrogen 39 mg/dL (8-24); Bun/Creatinine Ratio 18.5 (12.0-20.0); CO2, Blood 25 mmol/L (21-32); Calcium, Blood 7.8 mg/dL (8.5-10.1); Chloride, Blood 104 mmol/L (98-108); Creatinine, Blood 2.11 mg/dL (0.60-1.20); Globulin, Blood 5.1 g/dL (2.2-4.0); Glomerular Filtration Rate 31 (60-); Glucose, Blood 98 mg/dL (70-99); Potassium, Blood 4.3 mmol/L (3.5-5.5); Sodium, Blood 135 mmol/L (136-145); Total Protein, Blood 8.3 g/dL (6.4-8.2); Troponin I <0.015 ng/mL (0.000-0.040)
[2021-05-22 13:56] LABS: Hematocrit 23.3 % (37.0-53.0); Mean Corpuscular HGB 31.4 pg (26.0-34.0); Mean Corpuscular Volume 105 fL (80-100); Mean Platelet Volume 12.2 fL (9.1-12.4); Platelet Count 282 K/mm3 (150-400); RDW Coefficient Variation 15.9 % (11.7-14.2); RDW Standard Deviation 58.5 fL (35.1-46.3); Red Blood Cell Count 2.23 M/mm3 (4.30-5.90)
[2021-05-22 14:00] LABS: NRBC ABSOLUTE 0.03 K/mm3 (0.00-0.02); NRBC Auto 0.3 /100 WBC (0.0-0.2); White Blood Cell Count 8.99 K/mm3 (4.00-11.30)
[2021-05-22 14:41] LABS: SARS-Cov-2 (COVID-19) PCR, MMC NEGATIVE (NEGATIVE)
[2021-05-22 14:52] LABS: BASOPHILS PERCENT MAN 0 % (0-2); EOSINOPHILS PERCENT MAN 0 % (0-6); LYMPHOCYTES % ATYPICAL MANUAL 2 % (0-0); LYMPHOCYTES ABSOLUTE MAN 3.14 K/mm3 (0.84-5.20); LYMPHOCYTES PERCENT MAN 33 % (21-46); MONOCYTES ABSOLUTE MAN 0.08 K/mm3 (0.16-1.47); MONOCYTES PERCENT MAN 1 % (4-13); NEUTROPHILS ABSOLUTE MAN 5.75 K/mm3 (1.96-9.15); SEG NEUTROPHILS PERCENT MAN 64 % (41-73); TOTAL CELLS COUNTED 100
== END 2021-05-22 17:32 | disposition home or self-care (01) ==
LOC: ER 12:11
PROVIDERS: Emergency Medicine
DX: G93.40 Encephalopathy, unspecified (principal); N17.9 Acute kidney failure, unspecified; N18.9 Chronic kidney disease, unspecified; D63.1 Anemia in chronic kidney disease; I25.10 Atherosclerotic heart disease of native coronary artery without angina pectoris; G40.909 Epilepsy, unspecified, not intractable, without status epilepticus; Z20.822 Contact with and (suspected) exposure to COVID-19; Z79.899 Other long term (current) drug therapy; Z79.82 Long term (current) use of aspirin; Z86.73 Personal history of transient ischemic attack (TIA), and cerebral infarction without residual deficits
CPT/HCPCS: 36415; 36430; 70450; 80053; 84443; 84484; 85025; 86850; 86900; 86901; 86923; 93005; 93010; 99285-25; J7030; J7120; P9016; U0004

== ENCOUNTER → 2021-05-22 | Outpatient (CLI) | payer MEDICARE, OTHER ==
[~2021-05-22] MED LIST changes: +ACET500 PO; +ANORO ELLIPTA1 EACH INH; -ASPI81CH PO; +Aspir 8181 MG PO; +BISA5EC PO; +CEFP200 PO; +Hair, Skin & N1 EACH PO; +LORA.5 PO; +MIRALAX17 GM PO; +MORP20L PO; +PANTOPRAZOLE SO40 M2 PO; -PHENYTOIN SODI100 MG PO; +PHENYTOIN125 MG/5 M PO; +SENN187 PO; +TAMSULOSIN HCL0.4 M1 PO; +VANCOCIN HCL125 MG PO; +Vitamin D1000 UNI1 PO; +ZOLOFT50 MG PO
[2021-05-22 09:45] LABS: Hematocrit 22.5 % (37.0-53.0); Hemoglobin 6.9 g/dL (13.5-17.5); Mean Corpuscular HGB Conc 30.7 g/dL (31.5-36.5); Mean Corpuscular Volume 108 fL (80-100); Mean Platelet Volume 12.3 fL (9.1-12.4); NRBC ABSOLUTE 0.03 K/mm3 (0.00-0.02); NRBC Auto 0.4 /100 WBC (0.0-0.2); Platelet Count 320 K/mm3 (150-400); RDW Coefficient Variation 16.3 % (11.7-14.2); RDW Standard Deviation 59.2 fL (35.1-46.3); Red Blood Cell Count 2.09 M/mm3 (4.30-5.90); White Blood Cell Count 7.82 K/mm3 (4.00-11.30)
[2021-05-22 09:53] LABS: Albumin, Blood 3.2 g/dL (3.4-5.0); Albumin/Globulin Ratio 0.6 (0.8-1.8); Bilirubin, Total 0.3 mg/dL (0.1-1.0); Bun/Creatinine Ratio 19.2 (12.0-20.0); Calcium, Blood 8.5 mg/dL (8.5-10.1); Creatinine, Blood 2.08 mg/dL (0.60-1.20); Globulin, Blood 5.2 g/dL (2.2-4.0); Potassium, Blood 4.2 mmol/L (3.5-5.5); Total Protein, Blood 8.4 g/dL (6.4-8.2)
[2021-05-22 10:17] LABS: BASOPHILS PERCENT MAN 0 % (0-2); EOSINOPHILS PERCENT MAN 0 % (0-6); LYMPHOCYTES % ATYPICAL MANUAL 1 % (0-0); LYMPHOCYTES ABSOLUTE MAN 2.26 K/mm3 (0.84-5.20); LYMPHOCYTES PERCENT MAN 28 % (21-46); MONOCYTES ABSOLUTE MAN 0.07 K/mm3 (0.16-1.47); MONOCYTES PERCENT MAN 1 % (4-13); MYELOCYTE ABSOLUTE MAN 0.07 K/mm3 (0.00-0.00); MYELOCYTE PERCENT MAN 1 % (0-0); NEUTROPHILS ABSOLUTE MAN 5.39 K/mm3 (1.96-9.15); SEG NEUTROPHILS PERCENT MAN 69 % (41-73); TOTAL CELLS COUNTED 100
== END | disposition home or self-care (01) ==
LOC: LAB RH 08:30 → EDSTATUS 13:41
PROVIDERS: Internal Medicine
DX: N17.9 Acute kidney failure, unspecified (principal); R63.0 Anorexia
CPT/HCPCS: 80053; 85007; 85027

== ENCOUNTER → 2021-05-26 | Outpatient (CLI) | payer MEDICARE, OTHER ==
[~2021-05-26] MED LIST changes: +ACET500 PO; +ANORO ELLIPTA1 EACH INH; -ASPI81CH PO; +Aspir 8181 MG PO; +BISA5EC PO; +Hair, Skin & N1 EACH PO; +LORA.5 PO; +MIRALAX17 GM PO; +MORP20L PO; +PANTOPRAZOLE SO40 M2 PO; -PHENYTOIN SODI100 MG PO; +PHENYTOIN125 MG/5 M PO; +SENN187 PO; +TAMSULOSIN HCL0.4 M1 PO; +VANCOCIN HCL125 MG PO; +Vitamin D1000 UNI1 PO; +ZOLOFT50 MG PO
[2021-05-26 12:01] LABS: BASOPHILS ABSOLUTE AUTO 0.02 K/mm3 (0.00-0.23); BASOPHILS PERCENT AUTO 0 % (0-2); EOSINOPHILS ABSOLUTE AUTO 0.02 K/mm3 (0.00-0.68); EOSINOPHILS PERCENT AUTO 0 % (0-6); Hemoglobin 8.8 g/dL (13.5-17.5); Mean Corpuscular HGB 32.2 pg (26.0-34.0); Mean Corpuscular HGB Conc 31.4 g/dL (31.5-36.5); Mean Corpuscular Volume 103 fL (80-100); Mean Platelet Volume 12.7 fL (9.1-12.4); Platelet Count 221 K/mm3 (150-400); RDW Coefficient Variation 16.8 % (11.7-14.2); RDW Standard Deviation 60.6 fL (35.1-46.3); Red Blood Cell Count 2.73 M/mm3 (4.30-5.90); White Blood Cell Count 5.83 K/mm3 (4.00-11.30)
[2021-05-26 12:25] LABS: IMMATURE GRAN ABSOLUTE AUTO 0.08 K/mm3 (0.00-0.10); IMMATURE GRAN PERCENT AUTO 1 % (0-1); LYMPHOCYTES ABSOLUTE AUTO 2.14 K/mm3 (0.84-5.20); LYMPHOCYTES PERCENT AUTO 37 % (21-46); MONOCYTES ABSOLUTE AUTO 0.04 K/mm3 (0.16-1.47); MONOCYTES PERCENT AUTO 1 % (4-13); NEUTROPHILS ABSOLUTE AUTO 3.53 K/mm3 (1.96-9.15); NEUTROPHILS PERCENT AUTO 61 % (41-73)
[2021-05-26 12:37] LABS: BASOPHILS PERCENT MAN 0 % (0-2); EOSINOPHILS ABSOLUTE MAN 0.17 K/mm3 (0.00-0.68); EOSINOPHILS PERCENT MAN 3 % (0-6); LYMPHOCYTES % ATYPICAL MANUAL 2 % (0-0); LYMPHOCYTES ABSOLUTE MAN 2.04 K/mm3 (0.84-5.20); LYMPHOCYTES PERCENT MAN 33 % (21-46); MONOCYTES PERCENT MAN 0 % (4-13); NEUTROPHILS ABSOLUTE MAN 3.61 K/mm3 (1.96-9.15); SEG NEUTROPHILS PERCENT MAN 62 % (41-73); TOTAL CELLS COUNTED 100
== END | disposition home or self-care (01) ==
LOC: LAB RH 10:08 → EDSTATUS 13:43
PROVIDERS: Internal Medicine
DX: D64.9 Anemia, unspecified (principal)
CPT/HCPCS: 85025

== ENCOUNTER → 2021-05-31 | Outpatient (CLI) | payer MEDICARE, OTHER ==
[2021-05-31 12:14] LABS: Hematocrit 23.8 % (37.0-53.0); Hemoglobin 7.4 g/dL (13.5-17.5); Mean Corpuscular HGB Conc 31.1 g/dL (31.5-36.5); Mean Corpuscular Volume 103 fL (80-100); Mean Platelet Volume 12.5 fL (9.1-12.4); Platelet Count 211 K/mm3 (150-400); RDW Coefficient Variation 16.5 % (11.7-14.2); RDW Standard Deviation 58.3 fL (35.1-46.3); Red Blood Cell Count 2.31 M/mm3 (4.30-5.90); White Blood Cell Count 5.12 K/mm3 (4.00-11.30)
== END | disposition home or self-care (01) ==
LOC: LAB RH 09:35 → EDSTATUS 13:44
PROVIDERS: Internal Medicine
DX: N18.9 Chronic kidney disease, unspecified (principal); D63.1 Anemia in chronic kidney disease
CPT/HCPCS: 85027

== ENCOUNTER 2021-06-23 15:13 | Inpatient (IN) | payer OTHER ==
[~2021-06-23] VITALS: Ht 177.8 cm; Wt 51.7 kg
[~2021-06-23 15:13] MED LIST changes: -ACET325 PO; -ACET500 PO; -ANORO ELLIPTA1 EACH INH; -Aspir 8181 MG PO; -BISA5EC PO; -Hair, Skin & N1 EACH PO; -LORA.5 PO; -MIRALAX17 GM PO; -MORP20L PO; -PANTOPRAZOLE SO40 M2 PO; -PHENYTOIN125 MG/5 M PO; -SENN187 PO; -TAMSULOSIN HCL0.4 M1 PO; -VANCOCIN HCL125 MG PO; -Vitamin D1000 UNI1 PO; -ZOLOFT50 MG PO
[2021-06-23 16:02] LABS: Mean Corpuscular HGB 36.4 pg (26.0-34.0); Mean Corpuscular HGB Conc 34.1 g/dL (31.5-36.5); Mean Corpuscular Volume 107 fL (80-100); Platelet Count 259 K/mm3 (150-400); RDW Coefficient Variation 22.4 % (11.7-14.2); RDW Standard Deviation 68.4 fL (35.1-46.3); Red Blood Cell Count 1.18 M/mm3 (4.30-5.90)
[2021-06-23 16:03] LABS: White Blood Cell Count 12.48 K/mm3 (4.00-11.30)
[2021-06-23 16:04] LABS: NRBC ABSOLUTE 0.56 K/mm3 (0.00-0.02); NRBC Auto 4.5 /100 WBC (0.0-0.2)
[2021-06-23 16:05] LABS: Hematocrit 12.6 % (37.0-53.0); Hemoglobin 4.3 g/dL (13.5-17.5)
[2021-06-23] MEDS ORDERED: ANORO ELLIPTA1 EACH INH (16:19)
[2021-06-23] MEDS ORDERED: Aspir 8181 MG PO (16:20)
[2021-06-23] MEDS ORDERED: PHENYTOIN125 MG/5 M PO ×2 (16:21)
[2021-06-23] MEDS ORDERED: PANTOPRAZOLE SO40 M2 PO (16:22)
[2021-06-23] MEDS ORDERED: MIRALAX17 GM PO (16:23)
[2021-06-23] MEDS ORDERED: Hair, Skin & N1 EACH PO (16:23)
[2021-06-23] MEDS ORDERED: ZOLOFT50 MG PO (16:24)
[2021-06-23] MEDS ORDERED: TAMSULOSIN HCL0.4 M1 PO (16:24)
[2021-06-23] MEDS ORDERED: Vitamin D1000 UNI1 PO (16:25)
[2021-06-23] MEDS ORDERED: SENN187 PO (16:25)
[2021-06-23] MEDS ORDERED: ACET325 PO (16:26)
[2021-06-23] MEDS ORDERED: BISA5EC PO (16:27)
[2021-06-23] MEDS ORDERED: ACET500 PO (16:28)
[2021-06-23 16:33] LABS: Albumin/Globulin Ratio 0.6 (0.8-1.8); Bilirubin, Total 0.3 mg/dL (0.1-1.0); Bun/Creatinine Ratio 15.9 (12.0-20.0); Calcium, Blood 8.1 mg/dL (8.5-10.1); Creatinine, Blood 1.64 mg/dL (0.60-1.20); Potassium, Blood 3.8 mmol/L (3.5-5.5)
[2021-06-23 16:46] LABS: International Normalized Ratio 1.05
[2021-06-23 17:03] LABS: BASOPHILS PERCENT MAN 0 % (0-2); BLASTS PERCENT MAN 1 % (0-0); EOSINOPHILS ABSOLUTE MAN 0.12 K/mm3 (0.00-0.68); EOSINOPHILS PERCENT MAN 1 % (0-6); LYMPHOCYTES ABSOLUTE MAN 1.99 K/mm3 (0.84-5.20); LYMPHOCYTES PERCENT MAN 16 % (21-46); MONOCYTES PERCENT MAN 0 % (4-13); NEUTROPHILS ABSOLUTE MAN 9.85 K/mm3 (1.96-9.15); SEG NEUTROPHILS PERCENT MAN 79 % (41-73); TOTAL CELLS COUNTED 100
[2021-06-23 17:04] LABS: OTHER CELL PERCENT MAN 3 % (0-0)
[2021-06-23 18:27] LABS: Percent Saturation 26.3 % (20.0-50.0)
[2021-06-23 19:06] LABS: SARS-Cov-2 (COVID-19) PCR, MMC NEGATIVE (NEGATIVE)
[2021-06-24 03:45] LABS: Hematocrit 27.4 % (37.0-53.0); Hemoglobin 9.1 g/dL (13.5-17.5); Mean Corpuscular HGB 30.2 pg (26.0-34.0); Mean Corpuscular HGB Conc 33.2 g/dL (31.5-36.5); Mean Platelet Volume 12.1 fL (9.1-12.4); Platelet Count 177 K/mm3 (150-400); RDW Coefficient Variation 18.7 % (11.7-14.2); RDW Standard Deviation 53.5 fL (35.1-46.3); Red Blood Cell Count 3.01 M/mm3 (4.30-5.90)
[2021-06-24 03:50] LABS: Mean Corpuscular Volume 91 fL (80-100); NRBC ABSOLUTE 0.37 K/mm3 (0.00-0.02); NRBC Auto 5.1 /100 WBC (0.0-0.2); White Blood Cell Count 7.25 K/mm3 (4.00-11.30)
[2021-06-24 04:05] LABS: Albumin, Blood 2.6 g/dL (3.4-5.0); Albumin/Globulin Ratio 0.6 (0.8-1.8); Bilirubin, Total 0.4 mg/dL (0.1-1.0); Bun/Creatinine Ratio 13.6 (12.0-20.0); Calcium, Blood 7.8 mg/dL (8.5-10.1); Creatinine, Blood 1.54 mg/dL (0.60-1.20); Globulin, Blood 4.7 g/dL (2.2-4.0); Magnesium, Blood 1.8 mg/dL (1.6-2.4); Potassium, Blood 3.8 mmol/L (3.5-5.5); Total Protein, Blood 7.3 g/dL (6.4-8.2)
[2021-06-24 10:37] LABS: Hematocrit 25.4 % (37.0-53.0); Hemoglobin 8.5 g/dL (13.5-17.5)
[2021-06-24 18:36] LABS: Hematocrit 27.9 % (37.0-53.0); Hemoglobin 9.3 g/dL (13.5-17.5)
[2021-06-25 04:04] LABS: Hematocrit 28.9 % (37.0-53.0); Hemoglobin 9.6 g/dL (13.5-17.5); Mean Corpuscular HGB 31.1 pg (26.0-34.0); Mean Corpuscular HGB Conc 33.2 g/dL (31.5-36.5); Mean Corpuscular Volume 94 fL (80-100); Mean Platelet Volume 12.5 fL (9.1-12.4); NRBC ABSOLUTE 0.13 K/mm3 (0.00-0.02); Platelet Count 181 K/mm3 (150-400); RDW Coefficient Variation 19.9 % (11.7-14.2); RDW Standard Deviation 58.6 fL (35.1-46.3); Red Blood Cell Count 3.09 M/mm3 (4.30-5.90); White Blood Cell Count 6.56 K/mm3 (4.00-11.30)
[2021-06-25 04:22] LABS: Albumin, Blood 2.5 g/dL (3.4-5.0); Albumin/Globulin Ratio 0.5 (0.8-1.8); Bilirubin, Total 0.3 mg/dL (0.1-1.0); Calcium, Blood 8.1 mg/dL (8.5-10.1); Creatinine, Blood 1.4 mg/dL (0.60-1.20); Globulin, Blood 4.6 g/dL (2.2-4.0); Total Protein, Blood 7.1 g/dL (6.4-8.2)
[2021-06-27 00:33] LABS: Adenovirus F 40/41 Not Detected (NOT DETECT); Astrovirus Not Detected (NOT DETECT); Campylobacter Sp Not Detected (NOT DETECT); Cryptosporidium Not Detected (NOT DETECT); Cyclospora Cayetanensis Not Detected (NOT DETECT); E. Coli O157 Not Detected (NOT DETECT); Entamoeba Histolytica Not Detected (NOT DETECT); Enteroaggregative E. coli-EAEC Not Detected (NOT DETECT); Enteropathogenic E. coli-EPEC Detected (NOT DETECT); Enterotoxigenic E. coli-ETEC Not Detected (NOT DETECT); Giardia Lamblia Not Detected (NOT DETECT); Norovirus GI/GII Not Detected (NOT DETECT); Plesiomonas Shigelloides Not Detected (NOT DETECT); Rotavirus A Not Detected (NOT DETECT); Salmonella Sp Not Detected (NOT DETECT); Sapovirus Not Detected (NOT DETECT); Shiga Toxin-prod E. coli-STEC Not Detected (NOT DETECT); Shigella/Enteroin E. coli-EIEC Not Detected (NOT DETECT); Vibrio Cholerae Not Detected (NOT DETECT); Vibrio Sp Not Detected (NOT DETECT); Yersinia Enterocolitica Not Detected (NOT DETECT)
[2021-06-27 05:01] LABS: Hematocrit 27.8 % (37.0-53.0); Hemoglobin 8.6 g/dL (13.5-17.5); Mean Corpuscular HGB 29.5 pg (26.0-34.0); Mean Corpuscular HGB Conc 30.9 g/dL (31.5-36.5); Mean Corpuscular Volume 95 fL (80-100); Mean Platelet Volume 11.7 fL (9.1-12.4); Platelet Count 164 K/mm3 (150-400); RDW Coefficient Variation 19.9 % (11.7-14.2); RDW Standard Deviation 64.8 fL (35.1-46.3); Red Blood Cell Count 2.92 M/mm3 (4.30-5.90); White Blood Cell Count 6.54 K/mm3 (4.00-11.30)
[2021-06-27 05:33] LABS: Albumin, Blood 2.4 g/dL (3.4-5.0); Albumin/Globulin Ratio 0.6 (0.8-1.8); Bilirubin, Total 0.3 mg/dL (0.1-1.0); Bun/Creatinine Ratio 8.1 (12.0-20.0); Creatinine, Blood 1.36 mg/dL (0.60-1.20); Globulin, Blood 4.3 g/dL (2.2-4.0); Potassium, Blood 3.4 mmol/L (3.5-5.5); Total Protein, Blood 6.7 g/dL (6.4-8.2)
[2021-06-27 08:53] LABS: Stool Occult Blood Guaiac 1 Pos (Neg)
[2021-06-27] MEDS ORDERED: ACET325 PO (13:53)
[2021-06-27] MEDS ORDERED: MORP20L PO (14:04)
[2021-06-27] MEDS ORDERED: LORA.5 PO (14:04)
[2021-06-27] MEDS ORDERED: VANCOCIN HCL125 MG PO (14:04)
[2021-06-27 15:28] LABS: SARS-Cov-2 (COVID-19) PCR, MMC NEGATIVE (NEGATIVE)
== END 2021-06-27 17:50 | disposition hospice, inpatient (51) | DRG 371 ==
LOC: ER 15:13 → PCU 18:01 → MEDS 06-25 11:02 → ENPENDDIS 06-27 13:10 → MEDS 06-27 17:50
PROVIDERS: Emergency Medicine; Student in an Organized Health Care Education/Training Program; ADMIT Internal Medicine
PROC: 30233N1 Transfusion of Nonautologous Red Blood Cells into Peripheral Vein, Percutaneous Approach (ICD-10-PCS; principal; 2021-06-23)
DX: A04.72 Enterocolitis due to Clostridium difficile, not specified as recurrent (principal); E43 Unspecified severe protein-calorie malnutrition; I69.351 Hemiplegia and hemiparesis following cerebral infarction affecting right dominant side; Z68.1 Body mass index [BMI] 19.9 or less, adult; D62 Acute posthemorrhagic anemia; D63.8 Anemia in other chronic diseases classified elsewhere; F43.10 Post-traumatic stress disorder, unspecified; Z66 Do not resuscitate; G40.909 Epilepsy, unspecified, not intractable, without status epilepticus; I25.10 Atherosclerotic heart disease of native coronary artery without angina pectoris; N18.9 Chronic kidney disease, unspecified; Z86.19 Personal history of other infectious and parasitic diseases
CPT/HCPCS: 0097U; 36415; 36430; 80053; 82272; 82728; 83540; 83550; 83735; 85014; 85018; 85025; 85027; 85610; 85730; 86850; 86900; 86901; 86923; 87324; 93005; 93010; 94640; 94760; 94762; 99285-25; A9270; C9113; J2405; J7030; P9016; U0004